=== PATIENT | male | born 1970 | race Caucasian/White ===

== ENCOUNTER → 2019-04-15 | Outpatient (CLI) | payer BC ==
--- NOTE | 2019-04-15 10:04 | RAD ---
Indication: Pain TECHNIQUE: Multiple views of the cervical and lumbar spine. COMPARISON: None FINDINGS: Cervical spine is in normal anatomic alignment. Atlantoaxial joint interval is preserved. Prevertebral soft tissues within normal limits. No intervertebral disc space narrowing or osteophytosis suggest advanced arthritic process. Minimal facet arthropathy. No compression deformity. Visualized lungs are clear. Lumbar spine: Very mild dextroscoliosis of the lumbar spine with apex at L3 vertebral body. SI joints within normal limits. There are 5 lumbar type vertebral bodies. No compression deformities. Mild grade 1 anterolisthesis of L5 over S1. Mild lower thoracic spine degenerative disc disease. No significant facet arthropathy. Suggestion of bilateral L5 pars defect. IMPRESSION: As above. Electronically signed by: Alcon Brown DO (04/15/2019 10:01 AM) [id number]
== END | disposition home or self-care (01) ==
LOC: DXRAD 09:24
PROVIDERS: ATTEND Family Medicine
DX: M12.88 Other specific arthropathies, not elsewhere classified, other specified site (principal); M51.34 Other intervertebral disc degeneration, thoracic region
CPT/HCPCS: 72040; 72100